=== PATIENT | female | born 1945 | race Two or more races ===

== ENCOUNTER 2019-01-31 18:06 | Emergency (ER) | payer OTHER ==
[~2019-01-31] VITALS: Ht 154.9 cm; Wt 60.8 kg
[2019-01-31] MEDS ORDERED: CRESTOR40 MG (18:16)
[2019-01-31] MEDS ORDERED: TOPROL XL25 M1 (18:16)
[2019-01-31] MEDS ORDERED: CELEBREX100 MG PO (22:37)
[2019-01-31] MEDS ORDERED: ZITHROMAX500 MG PO (22:37)
== END 2019-01-31 22:43 | disposition home or self-care (01) ==
LOC: ER 18:06
DX: B96.0 Mycoplasma pneumoniae [M. pneumoniae] as the cause of diseases classified elsewhere (principal); R50.9 Fever, unspecified